=== PATIENT | male | born 1990 | race American Indian/Alaskan Native ===

== ENCOUNTER 2018-12-14 10:36 | Observation (INO) | payer OTHER ==
[2018-12-14] MEDS ORDERED: MORPHINE 2 MG/1 ML INJ IV PRN (10:44)
[2018-12-14 13:23] LABS: Basophils % (Auto) 0.4 % (0.0-1.8); Eosinophils # (Auto) 0.1 K/mm3 (0.0-0.4); Eosinophils % (Auto) 0.9 % (0.0-4.3); Hematocrit 47.3 % (35.5-45.6); Hemoglobin 15.7 gm/dl (11.8-15.2); Lymphocytes % (Auto) 13.2 % (13.4-35.0); Mean Corpuscular HGB Conc 33 % (32-34); Mean Corpuscular Volume 93 fl (84-94); Monocytes # (Auto) 0.5 K/mm3 (0.0-0.8); Monocytes % (Auto) 5.8 % (0.0-7.3); Platelet Count 203 K/mm3 (140-440); Red Blood Count 5.07 M/mm3 (3.65-5.03); Red Cell Distribution Width 13.8 % (13.2-15.2)
[2018-12-14 13:38] LABS: INR 1.2 (0.87-1.13)
[2018-12-14 13:40] LABS: Partial Thromboplastin Time 31.3 Sec. (24.2-36.6)
[2018-12-14 13:46] LABS: Alanine Aminotransferase 12 units/L (7-56); Albumin 4.9 g/dL (3.9-5); BUN/Creatinine Ratio 9; Blood Urea Nitrogen 7 mg/dL (9-20); Calcium 9.4 mg/dL (8.4-10.2); Hemolysis Index 39
[2018-12-14] MEDS: ENOXAPARIN 40 MG/0.4 ML INJ SUB-Q SCH (15:20)
[2018-12-14] MEDS: NITROGLYCERIN 2% OINT 1 GM TP SCH (15:22)
[2018-12-14] MEDS: ASPIRIN 325 MG TAB PO SCH (15:22)
[2018-12-14] MEDS: D5W/0.45% NACL 1,000 ML IV SCH (16:22)
--- NOTE | 2018-12-14 17:24 | History and Physical Report ---
History of Present Illness Date of examination: 12/14/18 Date of admission: 12/14/18 11:49 Chief complaint: Intermittent Chest pain for 1 month duration History of present illness: Patient is a 28-year-old gentleman with no significant past medical history who presented to my office on account of having intermittent chest pain for the past 2 months. It has become more frequent lately, lasting 2-3 minutes. Increasing in severity 5-7/10. Has associated shortness of breath. No diaphoresis. Radiates to left shoulder. Patient denies any tobacco or illicit drug use. EKG my office was remarkable for abnormal ST segment changes. Was having some chest pain in my office. Direct admission was requested. EKG shows atrial tachycardia on admission. Phosphorus was abnormal. First troponin level was normal. Past History Past Medical History: No medical history Past Surgical History: No surgical history Social history: denies: smoking, alcohol abuse, prescription drug abuse Family history: no significant family history Medications and Allergies Allergies Allergy/AdvReac Type Severity Reaction Status Date / Time No Known Allergies Allergy Unverified 01/29/18 00:58 Active Meds: Active Medications Aspirin (Aspirin) 325 mg PO QDAY [facility] Last Admin: 12/14/18 15:22 Dose: 325 mg Documented by: Enoxaparin Sodium (Enoxaparin) 40 mg SUB-Q QDAY [facility] Last Admin: 12/14/18 15:20 Dose: 40 mg Documented by: Dextrose/Sodium Chloride (D5/0.45ns) 1,000 mls @ 125 mls/hr IV DIRECT [facility] Last Admin: 12/14/18 16:22 Dose: 125 mls/hr Documented by: Lorazepam (Ativan) 0.5 mg PO BID [facility] Morphine Sulfate (Morphine) 2 mg IV Q6H PRN PRN Reason: Chest Pain Nitroglycerin (Nitro-Bid 2%) 1 inch TP Q24HR [facility]; Protocol Last Admin: 12/14/18 15:22 Dose: 1 inch Documented by: Sodium Chloride (Sodium Chloride Flush Syringe 10 Ml) 10 ml IV BID [facility] Sodium Chloride (Sodium Chloride Flush Syringe 10 Ml) 10 ml IV PRN PRN PRN Reason: LINE FLUSH Review of systems Constitutional: Well Nourished and Well developed. Head: NC/ AT Eyes: Denies any visual impairments. No discharge from the eyes Nose: Denies any rhinorrhea or epistaxis Throats: Denies any post nasal drainage. Ears: Denies any hearing deficits Cardiovascular system: Has chest pain, shortness of breath, no orthopnea, paroxysmal nocturnal dyspnea, or palpitation. Respiratory system: Denies any cough, difficulty breathing, wheezing, pleuritic chest pain, Gastrointestinal system: Denies any abdominal pain, nausea vomiting, hematemesis or melena. Neurological system: Denies any headache, slurred speech, facial droop, lateralizing weakness Genitalia system: Denies any dysuria, urinary frequency or urgency, urethral discharge Skin: No rashes, hyperpigmented spots. Hematological: Denies any cervical tenderness hemorrhages or petechia. Immunological: Denies any multiple septic spots, Lymphatic: Denies any generalized lymphadenopathy. Endocrine: Denies any polyuria, polydipsia, polyphagia. No heat or cold intolerance. Musculoskeletal system: No joint pain or swelling. Psych: No visual, tactile, auditory or hallucination Exam - Physical Exam Narrative exam: Constitutional: Well-nourished well-developed. In no distress Head: Normocephalic atraumatic Eyes: Pupils are equal round and reactive to light Nose: No enlarged turbinates, no septal deviation. Mouth: Moist mucous membranes. Neck: Supple no thyromegaly. No bruit. No JVD Heart: Regular rate and rhythm, S1-S2 normal. No rubs murmurs or gallop Lungs: Clear to auscultation bilaterally. no rales or rhonchi Abdomen: Soft, nontender. Bowel sound are present. Extremities: No edema, no cyanosis, no clubbing. Neuro: Alert oriented Oriented x3. No focal sensory or motor deficit. Skin: No rashes or hyperpigmented spots Musculoskeletal system: No joint pain or swelling Hematological: No petechia or subcutanous hemorrhages. Immunological: No multiple septic spots on the skin Lymphatic: No generalized lymphadenopathy Psychiatry: Euthymic. Calm. - Constitutional Vitals: Temp Pulse Resp BP Pulse Ox 98.0 F 18 148/88 12/14/18 12:18 12/14/18 12:18 12/14/18 15:22 Results - Labs CBC & Chem 7: 12/14/18 12:41 12/14/18 12:41 Labs: Abnormal lab results 12/14/18 12/14/18 12/14/18 Range/Units 12:41 12:41 12:41 RBC 5.07 H (3.65-5.03) M/mm3 Hgb 15.7 H (11.8-15.2) gm/dl Hct 47.3 H (35.5-45.6) % Lymph % (Auto) 13.2 L (13.4-35.0) % Lymph # 1.0 L (1.2-5.4) K/mm3 Seg Neutrophils % 79.7 H (40.0-70.0) % PT 15.1 H (12.2-14.9) Sec. INR 1.20 H (0.87-1.13) BUN 7 L (9-20) mg/dL Phosphorus (2.5-4.5) mg/dL 12/14/18 Range/Units 12:41 RBC (3.65-5.03) M/mm3 Hgb (11.8-15.2) gm/dl Hct (35.5-45.6) % Lymph % (Auto) (13.4-35.0) % Lymph # (1.2-5.4) K/mm3 Seg Neutrophils % (40.0-70.0) % PT (12.2-14.9) Sec. INR (0.87-1.13) BUN (9-20) mg/dL Phosphorus 2.40 L (2.5-4.5) mg/dL Assessment and Plan Patient is a 28-year-old gentleman with no significant past medical history who presented to my office on account of having intermittent chest pain for the past 2 weeks. It has become more frequent lately, lasting 2-3 minutes. Increasing in severity 5-7/10. Has associated shortness of breath. No diaphoresis. Radiates into today left shoulder. Patient denies any tobacco or illicit drug use. EKG my office was remarkable for abnormal ST segment changes. Was having some chest pain in my office. Direct admission was requested. EKG shows atrial tachycardia. Phosphorus was abnormal. First troponin level was normal. - Chest pain Obtain serial cardiac enzymes Commence patient on oxygen, nitroglycerin, aspirin and morphine Lescol stress test - Abnormal EKG with atrial tachycardia TSH, Lipid panel - Elevated blood pressure Trend -Hypophosphatemia Will supplement and recheck - DVT prophylaxis with Lovenox GI with Pepcid - Spent 35 minutes during this admission process in direct patient care review of laboratory and radiological data
[2018-12-14 18:40] LABS: Chol/HDL Ratio 3.5 %
[2018-12-14] MEDS: LORazepam 0.5 MG TAB PO SCH (21:44)
[2018-12-14] MEDS: PHOS-NAK POWDER PACKET PO SCH (21:44)
[2018-12-14 22:50] LABS: Bilirubin,Urine NEG (Negative); Blood,Urine NEG (Negative); Color,Urine Straw (Yellow); Mucus,Urine FEW /HPF; Protein,Urine <15 mg/dL mg/dL (Negative); Urobilinogen,Urine < 2.0 mg/dL (<2.0)
[2018-12-14 22:55] LABS: WBC,Urine < 1.0 /HPF (0.0-6.0)
[2018-12-15] MEDS: D5W/0.45% NACL 1,000 ML IV SCH (02:41)
[2018-12-15] MEDS ORDERED: REGADENOSON 0.4 MG/5 ML INJ IV ONE ×2 (07:28→07:29)
--- NOTE | 2018-12-15 08:24 | Progress Note ---
Assessment and Plan Patient is a 28-year-old gentleman with no significant past medical history who presented to my office on account of having intermittent chest pain for the past 2 weeks. It has become more frequent lately, lasting 2-3 minutes. Increasing in severity 5-7/10. Has associated shortness of breath. No diaphoresis. Radiates into today left shoulder. Patient denies any tobacco or illicit drug use. EKG my office was remarkable for abnormal ST segment changes. Was having some chest pain in my office. Direct admission was requested. EKG shows atrial tachycardia. Phosphorus was abnormal. First troponin level was normal. - Chest pain serial cardiac enzymes - nl Commence patient on oxygen, nitroglycerin, aspirin and morphine Lexiscan stress test - Abnormal EKG with atrial tachycardia TSH, Lipid panel - were normal - Elevated blood pressure Normalized -Hypophosphatemia Will supplement and recheck - DVT prophylaxis with Lovenox GI with Pepcid - Spent 25 minutes during this admission process in direct patient care review of laboratory and radiological data - Disposition: D/c home if stress test is normal Subjective Date of service: 12/15/18 Principal diagnosis: chest pain, Electrolyte imbalance, sinus tachycardia Interval history: intermittent chest pain Objective - Exam Narrative Exam: Constitutional: Well-nourished well-developed. In no distress Head: Normocephalic atraumatic Eyes: Pupils are equal round and reactive to light Nose: No enlarged turbinates, no septal deviation. Mouth: Moist mucous membranes. Neck: Supple no thyromegaly. No bruit. No JVD Heart: Regular rate and rhythm, S1-S2 normal. No rubs murmurs or gallop Lungs: Clear to auscultation bilaterally. no rales or rhonchi Abdomen: Soft, nontender. Bowel sound are present. Extremities: No edema, no cyanosis, no clubbing. Neuro: Alert oriented Oriented x3. No focal sensory or motor deficit. Skin: No rashes or hyperpigmented spots Musculoskeletal system: No joint pain or swelling Hematological: No petechia or subcutanous hemorrhages. Immunological: No multiple septic spots on the skin Lymphatic: No generalized lymphadenopathy Psychiatry: Euthymic. Calm. - Constitutional Vitals: Vital Signs - 12hr 12/15/18 12/15/18 12/15/18 00:29 03:43 04:00 Temperature 98.0 F 98.0 F Pulse Rate 91 H 80 110 H Respiratory 18 18 Rate Blood Pressure 99/43 109/55 O2 Sat by Pulse 98 95 Oximetry - Labs CBC & Chem 7: 12/14/18 12:41 12/14/18 12:41 Labs: Abnormal lab results 12/14/18 12/14/18 12/14/18 Range/Units 12:41 12:41 12:41 RBC 5.07 H (3.65-5.03) M/mm3 Hgb 15.7 H (11.8-15.2) gm/dl Hct 47.3 H (35.5-45.6) % Lymph % (Auto) 13.2 L (13.4-35.0) % Lymph # 1.0 L (1.2-5.4) K/mm3 Seg Neutrophils % 79.7 H (40.0-70.0) % PT 15.1 H (12.2-14.9) Sec. INR 1.20 H (0.87-1.13) BUN 7 L (9-20) mg/dL Phosphorus (2.5-4.5) mg/dL Urine pH (5.0-7.0) 12/14/18 12/14/18 Range/Units 12:41 18:20 RBC (3.65-5.03) M/mm3 Hgb (11.8-15.2) gm/dl Hct (35.5-45.6) % Lymph % (Auto) (13.4-35.0) % Lymph # (1.2-5.4) K/mm3 Seg Neutrophils % (40.0-70.0) % PT (12.2-14.9) Sec. INR (0.87-1.13) BUN (9-20) mg/dL Phosphorus 2.40 L (2.5-4.5) mg/dL Urine pH 8.0 H (5.0-7.0)
[2018-12-15] MEDS: LORazepam 0.5 MG TAB PO SCH (10:57)
[2018-12-15] MEDS: PHOS-NAK POWDER PACKET PO SCH (10:58)
[2018-12-15] MEDS: ASPIRIN 325 MG TAB PO SCH (10:58)
[2018-12-15] MEDS: ENOXAPARIN 40 MG/0.4 ML INJ SUB-Q SCH (10:58)
[2018-12-15] MEDS: NITROGLYCERIN 2% OINT 1 GM TP SCH (11:00)
[2018-12-15 17:43] VITALS: BP 131/74
--- NOTE | 2018-12-15 18:19 | Discharge Summary ---
Providers - Providers Date of Admission: 12/14/18 11:49 Date of discharge: 12/15/18 Attending physician: DEON WALL none Primary care physician: DEON WALL Hospitalization Reason for admission: chest pain Pertinent studies: EKG Lexiscan stress test Procedures: none Hospital course: Patient is a 28-year-old gentleman with no significant past medical history who presented to my office on account of having intermittent chest pain for the past 2 months. It has become more frequent lately, lasting 2-3 minutes. Increasing in severity 5-10. Has associated shortness of breath. No diaphoresis. Radiates to left shoulder. Patient denies any tobacco or illicit drug use. EKG my office was remarkable for abnormal ST segment changes. Was having some chest pain in my office. Direct admission was requested. EKG shows atrial tachycardia on admission. Phosphorus was abnormal. First troponin level was n ormal. TSH and lipid panel were normal. tachycardia was resolved with anxiolytics. Stress test was done. Finding were unremarkable for any cardiac ischemia. Pt was discharged to f/u with PCP in 3-5 days. Disposition: - TO HOME OR SELFCARE Time spent for discharge: 36 mins - Discharge Diagnoses (1) Chest pain due to psychological stress Status: Acute (2) Abnormal EKG Status: Acute (3) Atrial tachycardia Status: Acute (4) Hypophosphatemia Status: Acute Core Measure Documentation - Palliative Care Palliative Care/ Comfort Measures: Not Applicable - Core Measures Any of the following diagnoses?: none Exam - Physical Exam Narrative exam: Constitutional: Well-nourished well-developed. In no distress Head: Normocephalic atraumatic Eyes: Pupils are equal round and reactive to light Nose: No enlarged turbinates, no septal deviation. Mouth: Moist mucous membranes. Neck: Supple no thyromegaly. No bruit. No JVD Heart: Regular rate and rhythm, S1-S2 normal. No rubs murmurs or gallop Lungs: Clear to auscultation bilaterally. no rales or rhonchi Abdomen: Soft, nontender. Bowel sound are present. Extremities: No edema, no cyanosis, no clubbing. Neuro: Alert oriented Oriented x3. No focal sensory or motor deficit. Skin: No rashes or hyperpigmented spots Musculoskeletal system: No joint pain or swelling Hematological: No petechia or subcutanous hemorrhages. Immunological: No multiple septic spots on the skin Lymphatic: No generalized lymphadenopathy Psychiatry: Euthymic. Calm. - Constitutional Vitals: Temp Pulse Resp BP Pulse Ox 98.7 F 91 H 18 131/74 98 12/15/18 17:05 12/15/18 17:05 12/15/18 17:05 12/15/18 17:05 12/15/18 17:05 Plan Activity: advance as tolerated Weight Bearing Status: Weight Bear as Tolerated Diet: regular Follow up with: DEON WALL MD [Primary Care Provider] - 7 Days Forms: Work/School Release Form Prescriptions: Aspirin [Adult Aspirin] 81 mg PO QDAC #30 tablet. Aspirin 81 mg PO QDAY #30 tablet LORazepam [Ativan] 0.5 mg PO BID #30 tablet LORazepam [Ativan] 0.5 mg PO BID #60 tab Pot Phosphate/Na Phosphate [Phos-Nak] 1 each PO Q12HR #4 powd.pack
--- NOTE | 2018-12-15 19:15 | Treadmill Report ---
NUCLEAR CARDIAC IMAGING REPORT INDICATION FOR PROCEDURE: Chest pain. Informed consent was obtained. Treadmill stress testing was performed per the [facility] protocol. The patient exhibited excellent exercise tolerance with a normal heart rate and blood pressure response. He completed 12 minutes of the protocol with no chest pain or ischemic repolarization changes. Rest and stress nuclear cardiac imaging was performed following the intravenous administration of technetium-99m Myoview per protocol. Gated SPECT imaging demonstrates a post-stress left ventricular ejection fraction of 67% with normal wall motion. Myocardial perfusion imaging demonstrates no significant cavity change between stress and rest. No significant stress induced perfusion defects are seen. The exercise treadmill test is clinically and electrocardiographically nonischemic at an excellent level of cardiac work. Nuclear cardiac imaging demonstrates grossly normal left ventricular systolic function with no significant evidence of myocardial ischemia or necrosis. JOB# [id number] JANA/GERALDO
== END 2018-12-15 19:19 | disposition home or self-care (01) ==
LOC: 4A 10:36 → UNDOADMIN 10:36 → 4A 11:49 → INTOOBSV 11:49
PROVIDERS: ADMIT Family Medicine; ATTEND Family Medicine
DX: R07.89 Other chest pain (principal); E83.39 Other disorders of phosphorus metabolism; R94.31 Abnormal electrocardiogram [ECG] [EKG]; R03.0 Elevated blood-pressure reading, without diagnosis of hypertension
CPT/HCPCS: 36415; 78452; 80053; 80061; 81001; 83735; 84100; 84443; 84484; 85025; 85610; 85730; 93005; 93010; 93017; 96372; A9502; G0378; G0379; J1650; J2785